=== PATIENT | female | born 1995 | race Caucasian/White ===

== ENCOUNTER 2017-05-03 13:22 | Emergency (ER) | payer SELFPAY ==
[~2017-05-03] VITALS: Ht 162.6 cm; Wt 55.8 kg
[2017-05-03 13:33] VITALS: BP 105/70
--- NOTE | 2017-05-03 13:38 | NUR ---
UA COLLECTED. PT SENT TO LOBBY TO WAIT FOR BED OR OVERFLOW CHAIR.
[2017-05-03 15:21] LABS: BILIRUBIN,URINE 1+ (NEGATIVE); BLOOD, URINE TRACE-I (NEGATIVE); COLOR,URINE YELLOW (YELLOW); LEUKOCYTE ESTERASE ,URINE NEGATIVE (NEGATIVE); NITRITE, URINE NEGATIVE (NEGATIVE); PH,URINE 5.5 (5.0-9.0); UGLUCOSE NEGATIVE (NEGATIVE)
--- NOTE | 2017-05-03 15:31 | NUR ---
Patient ambulated to [facility]. RN evaluating patient.
[2017-05-03 15:34] LABS: APPEARANCE,URINE HAZY (CLEAR)
[2017-05-03 15:35] LABS: RBC,URINE NONE SEEN /HPF (0-5); WBC,URINE 0-5 (RARE) /HPF (0-5)
--- NOTE | 2017-05-03 15:42 | NUR ---
FEVER, HEADACHE, NAUSEA, LEFT LOWER BACK PAIN STARTED YESTERDAY THAT RADIATES TO LEFT LOWER LEG. DENIES ANY DYSURIA OR ANY INJURY TO BACK AREA. HX: SCOLIOSIS ADVIL TAKEN YESTERDAY
[2017-05-03] MEDS ORDERED: KETOROLAC 30 MG/ML VIAL IM ONE (15:45)
--- NOTE | 2017-05-03 16:41 | NUR ---
INFLUENZA TEST DONE AND TOLD LAB PERSONNEL TO TAKE IT.
[2017-05-03 17:33] VITALS: BP 102/68
--- NOTE | 2017-05-03 17:33 | NUR ---
Patient discharged with v/s stable. Written and verbal after care instructions given and explained. Patient alert, oriented and verbalized understanding of instructions. Ambulatory with steady gait. All questions addressed prior to discharge. ID band removed. Patient advised to follow up with PMD. Rx of NAPROSYN 500MG TAB, TYLENOL WITH CODEINE NO.3 AND TAMIFLU 75MG given. Patient educated on indication of medication including possible reaction and side effects. Opportunity to ask questions provided and answered.
== END 2017-05-03 17:33 | disposition home or self-care (01) ==
LOC: MED 13:22
DX: R05 Cough (principal); J09.X2 Influenza due to identified novel influenza A virus with other respiratory manifestations
CPT/HCPCS: 36415; 81001; 81025; 87804; 96372; 99284; J1885

== ENCOUNTER 2022-04-12 15:27 | Observation (INO) | payer MEDICAID ==
[~2022-04-12] VITALS: Ht 154.9 cm; Wt 59.0 kg
[2022-04-12 15:57] VITALS: BP 102/65
== END 2022-04-12 17:40 | disposition home or self-care (01) ==
LOC: MLD 15:27
PROVIDERS: ADMIT Obstetrics & Gynecology; ATTEND Obstetrics & Gynecology
DX: O62.9 Abnormality of forces of labor, unspecified (principal); Z20.822 Contact with and (suspected) exposure to COVID-19; O26.892 Other specified pregnancy related conditions, second trimester; R19.7 Diarrhea, unspecified; O21.2 Late vomiting of pregnancy; Z3A.22 22 weeks gestation of pregnancy
CPT/HCPCS: 87426; G0378; G0379